=== PATIENT | male | born 1960 | race Caucasian/White ===

== ENCOUNTER 2019-04-18 08:14 | Emergency (ER) | payer MEDICAID, SELFPAY ==
[2019-04-18 08:15] VITALS: BP 154/85; PULSE 88; RESP 16; TEMP 36.3; O2SAT 96; BMI 34.2
--- NOTE | 2019-04-18 08:33 | EKG12_ITS ---
Test Reason : SOB Blood Pressure : / mmHG Vent. Rate : 077 BPM Atrial Rate : 077 BPM P-R Int : 174 ms QRS Dur : 100 ms QT Int : 400 ms P-R-T Axes : 018 000 015 degrees QTc Int : 452 ms Normal sinus rhythm Confirmed by CHAZ RODRIGUEZ, PEPE ([id number]), assistant film editor ANNABEL GOMES ([id number]) on 04/22/2019 1:10:40 PM Referred By: KRIS Confirmed By:PEPE WARE MD
--- NOTE | 2019-04-18 08:34 | CT_ITS ---
STUDY: CTA CHEST REASON FOR EXAM: Male, 59 years old. Dyspnea. Patient has a history of a thoracic aortic aneurysm. RADIATION DOSAGE (If Supplied By Facility): CTDIvol = ( 17.48 ) mGy, DLP = ( 721.52 ) mGycm TECHNIQUE: The examination was performed with the intravenous administration of 100CC IV Isovue 370. Post-processing of the angiographic images was performed, with multiplanar reformation and 3D reconstruction. Individualized dose optimization techniques were used for this CT. COMPARISON: None. FINDINGS: There is a 3.6 mm cyst in the isthmus of the thyroid gland. Normal enhancement of the main pulmonary artery and right and left pulmonary arteries. Normal enhancement of the bilateral peripheral pulmonary arteries. There is no demonstrated pulmonary embolism. There is aneurysmal dilatation of the ascending aorta. The transverse diameter of the ascending aorta measures 48.5 mm's. There is no demonstrated aortic dissection. Normal heart and pericardium. Normal mediastinum. Normal hilar regions. Normal visualized trachea and bronchi. The lungs are well expanded. Normal pulmonary parenchyma. Normal pleura. Normal chest wall structures. There are mild degenerative changes of thoracic spine. Moderate sized hiatal hernia. CT/CTA Chest W/WO Contrast IMPRESSION: Dilatation of the ascending thoracic aorta with a transverse dimension of 48.5 mm. Subcentimeter cyst in the isthmus of the thyroid gland. Electronically Signed: Faisal Navarro, at 9:43 EDT , Service support ,
--- NOTE | 2019-04-18 08:38 | ED.VISSUMM ---
- ER Visit Summary Date of Service: 04/18/19 Chief Complaint: Shortness of breath History of Present Illness: The patient is a 59 M who presents the emergency department with a one-month history of dyspnea while laying flat. Dates that it has gradually gotten progressively worse. Patient states that he is generally fine during the day. He has not had any significant cough. No fevers or sweats. No chest pains. He states that when he goes to lay down at night he gets short of breath he gets panicky and has to get up and walk around. It does not wake him up from his sleep. He does note that he has a history of sleep apnea but does not utilize a machine. He is a non-smoker. No weight loss. 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 notes that his right leg has swelling compared to the left. He has a history of a thoracic aneurysm and notes that its been stable at 3.5 cm. 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 Physical Examination: Afebrile vital signs are stable Gen: Well-nourished well-developed Head: Normocephalic atraumatic Eyes: Perrl EOMI ENT: TMs clear no rhinorrhea moist mucous membranes Neck: Supple no lymphadenopathy no JVD nontender CVS: Regular rate rhythm no murmurs normal S1-S2 Respiratory: No distress clear to auscultation bilaterally chest nontender Abdomen: Soft nontender nondistended normal bowel sounds no masses Back: Nontender Extremity: Nontender the right leg does show some pitting edema that is more than on the left. There are no cords. Skin: Normal color no rash Neuro: alert orientated ?3 CN II-XII intact normal strength sensation reflexes gait cerebellar Psych: Normal affect normal mood Test Results: CBC CMP troponin and BNP are normal. EKG shows a normal sinus rhythm at a rate of 77. CT Mary Ann of the chest shows no PE, no pleural effusions, no pulmonary embolisms, no pneumonia, however is a sending thoracic aneurysm is at 4.85 cm. Emergency Department Course and Treatment: I spoke with Dr. Noel from cardiology. He is to see him tomorrow. The patient's lower extremity swelling is better now that he is been laying in bed. We will start him on low-dose Lasix. Dr. Noel notes that his ejection fraction has been normal. Patient has had some itching and then gets very anxious while he is here. Certainly in a degree of anxiety could be at play. He also has a hiatal hernia that has not been taking his PPI. Perhaps that also plays a role. I will also refer him to pulmonology for his sleep apnea. Impression: 1. Thoracic aortic aneurysm 4.85 cm 2. Hiatal hernia 3. Sleep apnea 4. Lymphedema This note was generated with [employer] dictation software. It may contain incorrect words, spelling, and punctuation that were not noted in review of the chart prior to signing ED Disposition - Plan for ED Patient: Disposition: Home or Assisted Living Instructions: ED Lymphedema, ED Apnea Sleep Obstructive Prescriptions: Furosemide [Lasix] 20 mg PO DAILY #30 tab Referrals: Jose J Tripathi MD [Primary Care Provider] - As Needed Dave Purvis MD [STAFF PHYSICIAN] - 1 Day Pradeep Hansen MD [STAFF PHYSICIAN] - (Call for appointment to see a lung specialist for your sleep apnea)
[2019-04-18 08:51] LABS: Absolute Lymphocyte Count 1.96 X10^3/ul (0.83-4.51); Absolute Neutrophil Count 2.4 X10^3/uL (2.0-7.7); Basophil# 0.06 X10^3/uL; Basophil% 1.1 % (0-1); Eosinophil# 0.33 X10^3/uL; Eosinophils% 6.1 % (0-5); Hematocrit 40.3 % (40-54); Hemoglobin 13.8 g/dl (13.0-16.5); Lymphocyte # 1.96 X10^3/ul (4.0); Lymphocyte % 36.2 % (19-41); Mean Corp Hgb Conc 34.2 g/gl (32-36); Mean Corpuscular Hgb 30.1 pg (27.0-32.0); Mean Platelet Vol. 9.9 fl (6.2-12.0); Monocyte# 0.64 X10^3/uL; Monocyte% 11.8 % (0-10); Neutrophil # 2.42 X10^3/uL (2.7-7.7); Neutrophil % 44.6 % (47-70); Platelet Count 306 K/mm3 (150-450); RBC Distribution Width CV 12.4 % (11.6-14.6); Red Blood Count 4.58 M/mm3 (4.6-6.2); White Blood Count 5.4 K/mm3 (4.4-11.0)
[2019-04-18 08:52] LABS: POSITIVE COUNT NO; POSITIVE DIFFERENTIAL NO; POSITIVE MORPHOLOGY NO
[2019-04-18 09:05] LABS: ALB/GLOB Ratio 1.1 RATIO (0.9-2.4); AST(SGOT) 20 U/L (15-37); Alanine Aminotransfer ALT/SGPT 33 U/L (16-61); Albumin, Serum 3.9 g/dL (3.2-5.0); Alkaline Phosphatase 73 U/L (45-117); Anion Gap 5 (5-15); BUN 16 mg/dL (7-18); BUN/Creat Ratio 15.7 RATIO (10-20); Calcium,Total 8.3 mg/dL (8.5-10.1); Chloride 107 mmol/L (98-107); Creatinine, Serum 1.02 mg/dL (0.70-1.30); EST Glomerular Filtration Rate 79 mL/min (>60); Est Glom Filt Rate - Afr Amer 95 mL/min (>60); Globulin 3.7 g/dL (2.2-4.2); Glucose 94 mg/dL (74-106); Protein, Total 7.6 g/dL (6.4-8.2); Sodium Level 139 mmol/L (136-145)
[2019-04-18 09:19] LABS: BNP,B-Type NATRIURETIC PEPTIDE 3.8 pg/mL (0-100)
[2019-04-18 10:27] VITALS: PULSE 86; RESP 18; O2SAT 98
== END 2019-04-18 10:27 | disposition home or self-care (01) ==
PROVIDERS: Emergency Provider Emergency Medicine; Family Provider Internal Medicine; PCP Internal Medicine
DX: I71.2 Thoracic aortic aneurysm, without rupture (principal); K44.9 Diaphragmatic hernia without obstruction or gangrene; G47.30 Sleep apnea, unspecified; I89.0 Lymphedema, not elsewhere classified; K21.9 Gastro-esophageal reflux disease without esophagitis; E11.9 Type 2 diabetes mellitus without complications; F32.9 Major depressive disorder, single episode, unspecified; Z79.899 Other long term (current) drug therapy
CPT/HCPCS: 71275; 80053; 83880; 84484; 85025; 93005; 99284; Q9967; A4216

== ENCOUNTER → 2020-08-29 | Outpatient (CLI) | payer MEDICAID, SELFPAY ==
[2020-08-29 11:40] VITALS: BMI 34.2
--- NOTE | 2020-08-29 12:21 | RAD_ITS ---
STUDY: X-RAY CHEST REASON FOR EXAM: Male, 60 years old. cough, fever, fatigue, SOB -- x several days -- tested for COVID yesterday, waiting on results TECHNIQUE: Frontal and lateral views of the chest COMPARISON: None. FINDINGS: The lungs are clear and expanded. There is no demonstrated pleural abnormality. Normal size heart. Normal mediastinum and ge. Normal visualized pulmonary arteries. Normal visualized aortic arch and descending thoracic aorta. There are remote healed right posterior lateral mid thoracic fractures. Remainder of the skeleton is intact. There is no demonstrated abnormality of the visualized soft tissue structures of the upper abdomen. RAD/Chest PA and Lateral IMPRESSION: Normal x-ray examination of the chest. No acute pneumonia. Electronically Signed: Eunice Briggs, at 13:42 EDT Tel , Service support ,
== END | disposition home or self-care (01) ==
LOC: RAD 12:20
PROVIDERS: PCP Internal Medicine; Visit Provider Physician Assistant Surgical
DX: R05 Cough (principal); R50.9 Fever, unspecified
CPT/HCPCS: 71046

== ENCOUNTER 2020-09-01 19:27 | Emergency (ER) | payer MEDICAID, SELFPAY ==
[2020-08-29 11:40] VITALS: BMI 34.2
[2020-09-01 19:28] VITALS: BP 147/121; PULSE 94; RESP 18; TEMP 37.7; O2SAT 96; BMI 33.3
[2020-09-01] MEDS: Ketorolac 15 MG/ML Vial IV (19:57)
--- NOTE | 2020-09-01 20:00 | RAD_ITS ---
STUDY: X-RAY CHEST REASON FOR EXAM: Male, 60 years old. PATIENT COVID POSITIVE. TESTED ON MONDAY. PATIENT STATES SYMPTOMS ARE GETTING WORSE. HEADACHE, BODY ACHES, NO ENGERY, NAUSEA AND VOMTING. TECHNIQUE: Frontal view COMPARISON: 08/29/2020 FINDINGS: The lungs are expanded. Right upper lobe granuloma. Normal size heart. Normal mediastinum and ge. Normal visualized pulmonary arteries. Normal visualized aortic arch and descending thoracic aorta. Normal visualized thoracic spine. Multiple old right rib fractures. There is no demonstrated abnormality of the visualized soft tissue structures of the upper abdomen. RAD/Chest 1 View (Portable) IMPRESSION: Right upper lobe granuloma. Electronically Signed: Chicho Kearney DO at 20:56 EDT Tel [phone], Service support ,
[2020-09-01 20:06] LABS: Absolute Lymphocyte Count 0.69 X10^3/uL (0.83-4.51); Basophil# 0.02 X10^3/uL; Basophil% 0.7 % (0-1); Eosinophil# 0.01 X10^3/uL; Eosinophils% 0.3 % (0-5); Hematocrit 43.6 % (40-54); Hemoglobin 14.6 g/dL (13.0-16.5); Lymphocyte # 0.69 X10^3/ul (4.0); Lymphocyte % 22.7 % (19-41); Mean Corp Hgb Conc 33.5 g/dL (32-36); Mean Corpuscular Hgb 30.5 pg (27.0-32.0); Mean Corpuscular Volume 91.2 fL (80-94); Mean Platelet Vol. 10.4 fl (6.2-12.0); Monocyte# 0.33 X10^3/uL; Monocyte% 10.9 % (0-10); NRBC Flagged by Analyzer 0 % (0-5); Neutrophil # 1.98 X10^3/uL (2.7-7.7); Neutrophil % 65.1 % (47-70); Platelet Count 162 K/mm3 (150-450); RBC Distribution Width CV 11.9 % (11.6-14.6); RBC Distribution Width SD 40.1 fl (35.1-43.9); Red Blood Count 4.78 M/mm3 (4.6-6.2)
--- NOTE | 2020-09-01 20:19 | ED.DCSUM_ITS ---
History of Present Illness Chief Complaint: General Illness Informant: Patient, Significant Other Onset: Days Context: Sudden Onset Timing: Continuous Quality: Viral-like symptoms Location: Generalized Current Severity: Severe Maximum Severity: Severe Worsened by: COVID-19 test positive Relieved by: Nothing Associated Symptoms: Headache, myalgias and arthralgias Narrative: Patient is 60-year-old male who presents with numerous symptoms. He had a COVID test on Monday that was positive. He states he did not have it any outpatient x-rays. He denies light sensitivity, neck pain or neck stiffness. Does complain of congestion. Does report altered taste and smell. He does report discomfort in his throat. He does have a mild cough. He reports shortness of breath. He does report nausea without vomiting diarrhea. He denies discolorat ion of his digits. He denies rash. Prior similar symptoms: No Recent Illness/Hospitalization: Yes - COVID-19 test on Monday positive - Past Medical History (1) Hiatal hernia Status: Chronic (2) Lymphedema Status: Chronic (3) Suspected sleep apnea Status: Chronic Past Medical History - Allergies and Home Meds Allergies/Adverse Reactions: Allergies No Known Allergies Allergy (Verified 09/01/20 19:31) Primary Care Physician: Jose J Tripathi MD [Primary Care Provider] - Prior records reviewed: Yes Surgical History: no surgical history Lives: Spouse/ Significant Other Smoking Status: Never smoker Alcohol: None Drugs: None Review of Systems General: Reports: Fever, Malaise, Subjective. Denies: Chills, Sweats, Weight loss Eyes: Denies: Visual changes - bilaterally, Blurred Vision - bilaterally ENT: Reports: Rhinorrhea, Sore throat. Denies: Bilateral ear pain Cardiovascular: Denies: Chest pain, Palpitations Respiratory: Reports: Dyspnea, Cough, Dyspnea on exertion. Denies: Sputum, Orthopnea, Paroxysmal nocturnal dyspnea Gastrointestinal: Reports: Nausea. Denies: Abdominal pain, Vomiting, Diarrhea Genitourinary: Denies: Dysuria, Hematuria, Frequency Musculoskeletal: Reports: Myalgias, Arthralgias. Denies: Neck pain, Back pain, Swelling, Extremity Pain, -, - Skin: Denies: Rash, Wounds Neurological: Reports: Headache, Weakness. Denies: Parasthesia Hematologic: Denies: Easy bruising, Easy bleeding Allergy: Denies: Uticaria Physical Exam Vital Signs/Narrative: Vital Signs Temp Pulse Resp BP Pulse Ox 09/01/20 19:28 99.8 F H 94 18 147/121 H 96 Inital Vital Signs reviewed: Yes General: Well nourished, Well developed, Obese, - - Patient does not appear well. He does not appear toxic. He does not appear in any obvious distress. Head: Normocephalic, Atraumatic Eyes: Perrl, EOMI, Scleral icterus. Negative for: Pale conjunctiva - Conjunctive is injected on the left. ENT: Dry mucous membranes, Nasal congestion. Negative for: Sinus tenderness Neck: Supple, Nontender, No lymphadenopathy, No JVD Cardiovascular: Regular rate, Regular rhythm, No murmurs, Normal S1, Normal S2 Respiratory: No distress, CTA bilaterally, Chest nontender Abdomen: Soft, Nontender, Nondistended, Normal bowel sounds Back: Nontender, Normal Inspection Extremities: Nontender, No edema Skin: Normal color, No rash. Negative for: Cyanosis, Diaphoresis, Jaundice, No Trauma Neurological: Alert, Oriented x3, Cranial nerves II-XII grossly intact, Normal Strength, Normal Sensation Psychological: - - Affect is flat Diagnostic/Tx/Re-eval Chest X-Ray - ED: 1 View, Read by ED Physician, - - View portable chest x-ray obtained reveals no acute process and unchanged from August 29, 2020. Cardiac silhouette normal. Cardiac size normal. No interstitial infiltrates noted. No pneumothorax. Osseous structures are normal. 09/01/20 20:00 Chest 1 View (Portable) [RAD] Stat Laboratory Results 09/01/20 09/01/20 19:50 19:50 WBC 3.0 L RBC 4.78 Hgb 14.6 Hct 43.6 MCV 91.2 MCH 30.5 MCHC 33.5 RDW Std Deviation 40.1 RDW Coeff of Randall 11.9 Plt Count 162 MPV 10.4 Immature Gran % (Auto) 0.300 Neut % (Auto) 65.1 Lymph % (Auto) 22.7 Crenshaw % (Auto) 10.9 H Eos % (Auto) 0.3 Baso % (Auto) 0.7 Absolute Neuts (auto) 2.0 Absolute Lymphs (auto) 0.69 L Nucleated RBC % 0 Sodium 139 Potassium 3.8 Chloride 106 Carbon Dioxide 28.0 Anion Gap 5 BUN 15 Creatinine 1.19 Estim Creat Clear Calc 68.55 Est GFR (MDRD) Af Amer 80 Est GFR (MDRD) Non-Af 66 BUN/Creatinine Ratio 12.6 Glucose 109 H Calcium 8.4 L Patient was informed his results are unremarkable. Since he is not tachycardic, tachypneic or hypoxic and there is no evidence of pneumonia plan is discharged to home. Patient was told he may be sick for 1 to 2 weeks or longer. Informed that there are patients that are known as long holders and been sick for months. - Medical Decision Making X-ray is obtained to assess for Kopit pneumonia. Chest x-ray interpreted by me as negative. Furthermore the x-ray is unchanged from August 29. Blood work was obtained to assess for renal dysfunction neutropenia etc. He will receive IV fluids and Toradol for his myalgias and arthralgias. ED Disposition - Plan for ED Patient: Disposition: Home or Assisted Living Diagnosis: COVID-19 virus infection, Dyspnea due to COVID-19 Instructions: ED Dyspnea Referrals: Jose J Tripathi MD [Primary Care Provider] - 10-14 Days if not better
[2020-09-01 20:37] LABS: Anion Gap 5 (5-15); BUN 15 mg/dL (7-18); BUN/Creat Ratio 12.6 RATIO (10-20); Calcium,Total 8.4 mg/dL (8.5-10.1); Chloride 106 mmol/L (98-107); Creatinine, Serum 1.19 mg/dL (0.70-1.30); EST Glomerular Filtration Rate 66 mL/min (>60); Est Glom Filt Rate - Afr Amer 80 mL/min (>60); Estimated Creatinine Clearance 68.55 ml/min; Glucose 109 mg/dL (74-106); Potassium 3.8 mmol/L (3.5-5.1); Sodium Level 139 mmol/L (136-145)
[2020-09-01 20:57] VITALS: BP 132/68; PULSE 88; RESP 23; TEMP 37.4; O2SAT 96
[2020-09-01 21:45] VITALS: BP 141/77; PULSE 81; RESP 18; O2SAT 94
== END 2020-09-01 21:46 | disposition home or self-care (01) ==
PROVIDERS: Emergency Provider Emergency Medicine; PCP Internal Medicine
DX: U07.1 COVID-19 (principal); R06.00 Dyspnea, unspecified; E66.9 Obesity, unspecified
CPT/HCPCS: 71045; 80048; 85025; 96374; 99281; A4216

== ENCOUNTER 2024-10-07 19:32 | Emergency (ER) | payer OTHER, SELFPAY ==
[2024-10-07 19:33] VITALS: BP 162/87; PULSE 82; RESP 16; TEMP 36.2; O2SAT 98; BMI 35.1
--- NOTE | 2024-10-07 19:49 | EKG12_ITS ---
Test Reason : CP Blood Pressure : */* mmHG Vent. Rate : 82 BPM Atrial Rate : 82 BPM P-R Int : 180 ms QRS Dur : 100 ms QT Int : 380 ms P-R-T Axes : 47 7 34 degrees QTcB Int : 443 ms Sinus rhythm with Premature supraventricular complexes Cannot rule out Inferior infarct , age undetermined Abnormal ECG Confirmed by MACIEJ RODRIGUEZ, ABDOULAYE ([id number]), video tape editor ROGER COLUNGA ([id number]) on 10/08/2024 1:53:40 PM Referred By: Confirmed By: ABDOULAYE WING MD
[2024-10-07 19:53] VITALS: O2SAT 96
[2024-10-07 19:58] LABS: Absolute Lymphocyte Count 2.26 X10^3/uL (0.83-4.51); Absolute Neutrophil Count 4.8 X10^3/uL (2.0-7.7); Basophil# 0.09 X10^3/uL; Basophil% 1.1 % (0-1); Eosinophil# 0.27 X10^3/uL; Eosinophils% 3.2 % (0-5); Hematocrit 37.3 % (40-54); Lymphocyte # 2.26 X10^3/ul (0.83-4.51); Lymphocyte % 26.7 % (19-41); Mean Corp Hgb Conc 32.2 g/dL (32-36); Mean Corpuscular Hgb 26.5 pg (27.0-32.0); Mean Corpuscular Volume 82.5 fL (80-94); Mean Platelet Vol. 10.3 fl (6.2-12.0); Monocyte# 1.09 X10^3/uL; Monocyte% 12.9 % (0-10); NRBC Flagged by Analyzer 0 % (0-5); Neutrophil # 4.75 X10^3/uL (2.7-7.7); Neutrophil % 55.9 % (47-70); Platelet Count 336 K/mm3 (150-450); RBC Distribution Width CV 14.6 % (11.6-14.6); RBC Distribution Width SD 43.3 fl (35.1-43.9); Red Blood Count 4.52 M/mm3 (4.6-6.2); White Blood Count 8.5 K/mm3 (4.4-11.0)
--- NOTE | 2024-10-07 20:00 | RAD_ITS ---
EXAM: XR CHEST, 2 VIEWS CLINICAL INDICATION: chest pain TECHNIQUE: Frontal and lateral views of the chest. COMPARISON: 09/01/2020 FINDINGS: LUNGS AND PLEURAL SPACES: No significant abnormality. No consolidation or edema. No pneumothorax. No effusion. HEART: No significant abnormality. Cardiac silhouette not enlarged. MEDIASTINUM: Central airways and mediastinal contour are unremarkable. BONES/JOINTS: No significant abnormality. No acute fracture. SOFT TISSUES: No significant abnormality. RAD/Chest PA and Lateral IMPRESSION: No radiographic evidence of acute cardiopulmonary disease. Electronically Signed: Edilson Patten DO at 20:33 EST ,
[2024-10-07 20:16] LABS: Anion Gap 8 (5-15); BUN 23 mg/dL (7-18); BUN/Creat Ratio 18.3 RATIO (10-20); Calcium,Total 9.6 mg/dL (8.5-10.1); Chloride 105 mmol/L (98-107); Creatinine, Serum 1.26 mg/dL (0.70-1.30); EST Glomerular Filtration Rate 61 mL/min (>60); Est Glom Filt Rate - Afr Amer 74 mL/min (>60); Estimated Creatinine Clearance 74.15 ml/min; Glucose 101 mg/dL (74-106); Potassium 3.6 mmol/L (3.5-5.1); Sodium Level 139 mmol/L (136-145); Troponin-I HS 14 pg/mL (3.0-78.0)
--- NOTE | 2024-10-07 20:17 | EDS_ITS ---
HPI <DIANE Moise - Last Filed: 10/07/24 21:59> History of Present Illness Chief Complaint: Chest Pain Narrative Narrative: Patient presenting today due to midsternal burning chest pain he has had intermittently over the past 2 days. He initially thought that the pain was consistent with gastric reflux, he does have a history of GERD and a hiatal hernia. However, it does not seem to resolve with Prilosec. Coffee does seem to worsen the pain. He denies any cardiac history. He does report feeling fatigued and slightly short of breath with exertion. PFSH <DIANE Moise - Last Filed: 10/07/24 21:59> [facility] Medical History HTN (hypertension) Hiatal hernia Lymphedema Suspected sleep apnea SOB (shortness of breath) Home Medications ?Medication ?Instructions ?Recorded ?Last Taken ?Type amlodipine 10 mg tablet 10 mg PO DAILY 07/03/17 Unknown History duloxetine 60 mg capsule,delayed 60 mg PO DAILY 07/03/17 Unknown History release omeprazole 40 mg capsule,delayed 40 mg PO PRN PRN Heartburn 07/03/17 Unknown History release doxazosin 2 mg tablet 2 mg PO QHS 10/07/24 Unknown History Allergy/AdvReac Type Severity Reaction Status Date / Time No Known Allergies Allergy Verified 10/07/24 19:33 Family History Other Heart disease Surgical History Hx of fracture of leg Social History Smoking Status: Never smoker alcohol intake: never ROS <DIANE Moise - Last Filed: 10/07/24 21:59> ROS ED Constitutional Constitutional ED: Denies chills or fever(s) Cardiovascular Cardiovascular: Reports chest pain; Denies palpitations Respiratory/Chest Respiratory/Chest: Reports dyspnea on exertion; Denies cough Gastrointestinal Gastrointestinal: Denies abdominal pain, nausea or vomiting Musculoskeletal Musculoskeletal: Denies arthralgias or myalgias Integumentary Denies rash Neurologic Neurologic: Denies weakness EXAM <DIANE Moise - Last Filed: 10/07/24 21:59> Physical Exam Const Vital Signs: 10/07/24 19:33 10/07/24 19:40 10/07/24 19:53 Temperature 97.2 F L Temperature Source Temporal Pulse Rate 82 Respiratory Rate 16 Respiratory Effort Normal Non-Labored Respiratory Pattern Normal Blood Pressure 162/87 H Blood Pressure Mean 112 Pulse Ox 98 96 Oxygen Delivery Method Room Air Room Air 10/07/24 20:33 10/07/24 21:00 10/07/24 22:00 Temperature Temperature Source Pulse Rate 77 82 76 Respiratory Rate 18 18 18 Respiratory Effort Respiratory Pattern Blood Pressure 144/94 H 151/89 H 156/102 H Blood Pressure Mean 110 109 120 Pulse Ox 96 96 93 Oxygen Delivery Method Room Air Room Air Room Air Positive well nourished, well developed and no apparent distress General Appearance ED: well developed HEENT Reports normocephalic and head/scalp atraumatic Mouth ED: Yes moist mucous membranes normal Eyes PERRL and EOMs intact bilaterally Neck full ROM and supple Chest Wall inspection of chest normal Resp normal respiratory effort and clear to auscultation bilaterally Cardio regular rate and regular rhythm GI soft to palpation, non-tender, non-distended and no masses Back/Spine normal ROM and normal to inspection Extremity normal to inspection and full ROM Neuro oriented x3, CN's II-XII intact bilaterally, moves all extremities, no focal motor deficits and no sensory deficits noted Sensorium / Orientation: awake and alert Psych mental status grossly normal and thought process normal Skin no rashes or lesions noted and no wounds <Dr. Jerod Baldwin MD - Last Filed: 10/07/24 22:25> Physical Exam Const Vital Signs: 10/07/24 19:33 10/07/24 19:40 10/07/24 19:53 Temperature 97.2 F L Temperature Source Temporal Pulse Rate 82 Respiratory Rate 16 Respiratory Effort Normal Non-Labored Respiratory Pattern Normal Blood Pressure 162/87 H Blood Pressure Mean 112 Pulse Ox 98 96 Oxygen Delivery Method Room Air Room Air 10/07/24 20:33 10/07/24 21:00 10/07/24 22:00 Temperature Temperature Source Pulse Rate 77 82 76 Respiratory Rate 18 18 18 Respiratory Effort Respiratory Pattern Blood Pressure 144/94 H 151/89 H 156/102 H Blood Pressure Mean 110 109 120 Pulse Ox 96 96 93 Oxygen Delivery Method Room Air Room Air Room Air <Dr. Jerod Baldwin MD - Last Filed: 10/07/24 22:25> Heart Score History: Moderately Suspicious ECG: Normal Age: >/= 65 years Risk Factors: >/= 3 Risk Factors or History of CAD Troponin: </= Normal Limit Score: 5 MDM <DIANE Moise - Last Filed: 10/07/24 21:59> [facility] Narrative Medical decision making narrative: Patient presenting today with a burning midsternal chest pain he has had over the past 2 days intermittently. This seems to be nonexertional. Coffee worsens his symptoms. He does have a history of GERD and reports that this feels similar however he is not having any relief from Prilosec. He did see his PCP today who performed an EKG that stated, cannot rule out inferior infarct and encouraged him to come in for evaluation. His EKG today is similar to his EKG from several years ago. He has no acute ischemia or ST elevation. Cardiac workup obtained. Initial troponin is 14, delta is pending. Chest x-ray obtaine d and is negative for any acute cardiopulmonary abnormality. He was given Mylanta and did report improvement of his symptoms. Delta Troponin is pending. Lab Data Attestation: I reviewed the patient's lab results. Lab results narrative: H&H 12 and 37.3, BUN 23, troponin 14 Labs: Laboratory Results - last 24 hr 10/07/24 10/07/24 10/07/24 19:48 21:22 21:51 WBC 8.5 RBC 4.52 L Hgb 12.0 L Hct 37.3 L MCV 82.5 MCH 26.5 L MCHC 32.2 RDW Std Deviation 43.3 RDW Coeff of Randall 14.6 Plt Count 336 MPV 10.3 Immature Gran % (Auto) 0.200 Neut % (Auto) 55.9 Lymph % (Auto) 26.7 Ceiba % (Auto) 12.9 H Eos % (Auto) 3.2 Baso % (Auto) 1.1 H Absolute Neuts (auto) 4.8 Absolute Lymphs (auto) 2.26 Nucleated RBC % 0 Sodium 139 Potassium 3.6 Chloride 105 Carbon Dioxide 26.0 Anion Gap 8 BUN 23 H Creatinine 1.26 Estim Creat Clear Calc 74.15 Est GFR (MDRD) Af Amer 74 Est GFR (MDRD) Non-Af 61 BUN/Creatinine Ratio 18.3 Glucose 101 Calcium 9.6 Troponin I High Sens 14 13 Urine Color Yellow Urine Clarity Clear Urine pH 6.0 Ur Specific [place] 1.025 Urine Protein 30 H Urine Glucose (UA) Normal Urine Ketones Negative Urine Occult Blood Negative Urine Nitrite Negative Urine Bilirubin Negative Urine Urobilinogen 1 H Ur Leukocyte Esterase 25 H Urine RBC 0 SEEN Urine WBC 0-5 SEEN Ur Squamous Epith Cells 0 SEEN Urine Bacteria RARE Urine Mucus 1+ Radiography X-Ray: Read by ED Physician Diagnostic Testing: Clinical Impression(s) from Imaging Studies Chest X-Ray 10/07/24 20:00 IMPRESSION: No radiographic evidence of acute cardiopulmonary disease. Electronically Signed: Edilson Patten DO at 20:33 EST , EKG Initial EKG: Comments: 82 bpm, sinus rhythm with PACs, no ST elevation, interpreted by attending ED physician <Dr. Jerod Baldwin MD - Last Filed: 10/07/24 22:25> [facility] Lab Data Labs: Laboratory Results - last 24 hr 10/07/24 10/07/24 10/07/24 19:48 21:22 21:51 WBC 8.5 RBC 4.52 L Hgb 12.0 L Hct 37.3 L MCV 82.5 MCH 26.5 L MCHC 32.2 RDW Std Deviation 43.3 RDW Coeff of Randall 14.6 Plt Count 336 MPV 10.3 Immature Gran % (Auto) 0.200 Neut % (Auto) 55.9 Lymph % (Auto) 26.7 Ceiba % (Auto) 12.9 H Eos % (Auto) 3.2 Baso % (Auto) 1.1 H Absolute Neuts (auto) 4.8 Absolute Lymphs (auto) 2.26 Nucleated RBC % 0 Sodium 139 Potassium 3.6 Chloride 105 Carbon Dioxide 26.0 Anion Gap 8 BUN 23 H Creatinine 1.26 Estim Creat Clear Calc 74.15 Est GFR (MDRD) Af Amer 74 Est GFR (MDRD) Non-Af 61 BUN/Creatinine Ratio 18.3 Glucose 101 Calcium 9.6 Troponin I High Sens 14 13 Urine Color Yellow Urine Clarity Clear Urine pH 6.0 Ur Specific Oce[place] 1.025 Urine Protein 30 H Urine Glucose (UA) Normal Urine Ketones Negative Urine Occult Blood Negative Urine Nitrite Negative Urine Bilirubin Negative Urine Urobilinogen 1 H Ur Leukocyte Esterase 25 H Urine RBC 0 SEEN Urine WBC 0-5 SEEN Ur Squamous Epith Cells 0 SEEN Urine Bacteria RARE Urine Mucus 1+ Radiography Diagnostic Testing: Clinical Impression(s) from Imaging Studies Chest X-Ray 10/07/24 20:00 IMPRESSION: No radiographic evidence of acute cardiopulmonary disease. Electronically Signed: Edilson Patten DO at 20:33 EST , EKG Follow-up EKG: Attestation: I personally reviewed and interpreted this EKG as follows: Interpretation: Sinus Rhythm, No Acute Injury Pattern and - (Q waves lead III only, unchanged with all of his prior EKGs) Comments: Nml axis & intervals; nml EKG Prior EKG tracings: available for review Prior: Unchanged Treatment and Re-Evaluation Comments:: I have personally performed a face to face assessment of the patient and have reviewed the MINI Note. I performed a substantive portion of the visit including all aspects of the following. My louis findings include: History is 3 days of [id number] episodes of central chest burning that felt like heartburn, feeling fatigued and having some sweats with it. Already on Prilosec for heartburn. PCP saw in the office and sent to the ER for evaluation for possible cardiac etiology which patient does not have a prior history of but does have risk factors. Exam is RRR no murmur, lungs clear to auscultation throughout, chest nontender. No peripheral edema or calf tenderness. No epigastric tenderness. Medical Decison Making EKG and troponin are normal, 2 view chest x-ray on my interpretation is negative for anything acute including mediastinal widening, consolidation, pneumothorax. Radiology in agreement. During my evaluation he was having another episode of discomfort and it was lasting longer than usual. I had repeat EKG done, see above it is unchanged and normal, and his discomfort went away with Mylanta. Delta troponin is negative with the subsequent measurement going down. Stable for discharge home, advised to follow-up with his doctor for continued symptoms. Other additions or changes: [None] Discharge Plan Triage Chief Complaint: Chest Pain ED Midlevel Provider: Maria Luciano ED Provider: Jerod Baldwin Dx/Rx/DC Orders Clinical Impression: Chest pain, Hx of gastroesophageal reflux (GERD), Fatigue Instructions: ED Chest Pain, Noncardiac, ED GERD (Adult) Prescriptions: No Action omeprazole 40 MG capsule,delayed release(DR/EC) 40 mg PO PRN PRN (Reason: Heartburn) Patient Comments: amlodipine 10 MG tablet 10 mg PO DAILY duloxetine 60 MG capsule 60 mg PO DAILY Patient Comments: doxazosin 2 mg tablet 2 mg PO QHS Primary Care Provider: Jose J Tripathi Referrals: Jose J Tripathi MD [Primary Care Provider] - 5-7 Days Activity Restrictions/Additional Instructions: Follow-up with your PCP and return for any worsening of your symptoms. Print Language: Kyrgyz Disposition Disposition: Home, Self Care
[2024-10-07 20:33] VITALS: BP 144/94; PULSE 77; RESP 18; O2SAT 96
[2024-10-07 21:00] VITALS: BP 151/89; PULSE 82; RESP 18; O2SAT 96
[2024-10-07] MEDS: Mag Hydrox/Al Hydrox/Simeth 30 ML UDC PO (21:13)
--- NOTE | 2024-10-07 21:16 | EKG12_ITS ---
Test Reason : REPEAT Blood Pressure : */* mmHG Vent. Rate : 77 BPM Atrial Rate : 77 BPM P-R Int : 188 ms QRS Dur : 100 ms QT Int : 382 ms P-R-T Axes : 52 0 25 degrees QTcB Int : 432 ms Normal sinus rhythm Inferior infarct , age undetermined Abnormal ECG Confirmed by ABDOULAYE WING MD ([id number]), editor newspaper ROGER COLUNGA ([id number]) on 10/08/2024 1:52:41 PM Referred By: Confirmed By: ABDOULAYE WING MD
[2024-10-07 21:27] LABS: Red Blood Cells-Urine 0 SEEN /hpf (0-5); Squamous Epithelial Cells - UA 0 SEEN /hpf (0-5)
[2024-10-07 21:30] LABS: Color, Urine Yellow (Yellow); Glucose, Dipstick Normal (Normal); Ketone-Dipstick Negative (Negative); Leukocyte Esterase-Dipstick 25 /ul (Negative); Nitrite-Dipstick Negative (Negative); Occult Blood-Urine Negative /ul (Negative); Protein-Dipstick 30 mg/dl (Negative); Specific Gravity, Urine 1.025 (1.002-1.030); Urine Bilirubin Dipstick Negative (Negative); Urine Clarity Clear (Clear); Urine Urobilinogen 1 mg/dl (Normal)
[2024-10-07 21:45] LABS: Bacteria RARE /hpf (None Seen); Mucous, Urine 1+ /hpf (<or=2+); White Blood Cells 0-5 SEEN /hpf (0-5)
[2024-10-07 22:00] VITALS: BP 156/102; PULSE 76; RESP 18; O2SAT 93
[2024-10-07 22:13] LABS: Troponin-I HS 13 pg/mL (3.0-78.0)
[2024-10-07 22:26] VITALS: BP 156/102; PULSE 81; RESP 18; TEMP 36.7; O2SAT 95
== END 2024-10-07 22:32 | disposition home or self-care (01) ==
PROVIDERS: Physician Assistant; Emergency Provider Emergency Medicine; PCP Internal Medicine; Visit Provider Emergency Medicine
DX: R07.89 Other chest pain (principal); R61 Generalized hyperhidrosis; R53.83 Other fatigue; I10 Essential (primary) hypertension; I49.1 Atrial premature depolarization; K21.9 Gastro-esophageal reflux disease without esophagitis; K44.9 Diaphragmatic hernia without obstruction or gangrene; Z79.899 Other long term (current) drug therapy
CPT/HCPCS: 71046; 80048; 81001; 84484; 85025; 93005; 99283; A4216